=== PATIENT | female | born 1955 | race Hispanic/Latino ===

== ENCOUNTER 2020-11-15 11:01 | Emergency (ER) | payer BC ==
[~2020-11-15] VITALS: Ht 157.5 cm; Wt 88.0 kg
[~2020-11-15 11:01] MED LIST: ACYCLOVIR200 MG PO; ALPRAZOLAM PO; BENAZEPRIL-HCT1 EAC1 PO; CLONAZEPAM0.5 MG PO; CYMBALTA PO; CYMBALTA30 MG PO; GABAPENTIN600 MG PO; GLYBURIDE5 MG PO; METFORMIN PO; NOVOLOG MI100 UNITS/ SC; PRAVASTATIN SOD40 MG PO; QUETIAPINE FUMA50 M1 PO; SEROQUEL PO
== END 2020-11-15 13:08 | disposition home or self-care (01) ==
LOC: ER 11:26
DX: R42 Dizziness and giddiness (principal); E78.5 Hyperlipidemia, unspecified; G47.30 Sleep apnea, unspecified; G62.9 Polyneuropathy, unspecified; Z98.84 Bariatric surgery status
CPT/HCPCS: 70450; 93005; 99283